=== PATIENT | female | born 1945 | race Caucasian/White ===

== ENCOUNTER 2023-11-14 07:28 | Inpatient (IN) ==
--- NOTE | 2023-11-09 11:48 | Anesthesiology Consultation ---
Date of Service November 09, 2023 Assessment & Plan (1) Encounter for pre-operative examination: Chart Review Chart Review: Acceptable Risk for Surgery and Patient NOT seen in Pre Admission Testing Consults Requested none History Surgery Operation Date: 11/14/23 12:15 Proposed Procedures p Right Sacroiliac Joint Fusion Revision - Audie Nathan DO Height/Weight Height: 5 ft Weight: 57.606 kg Allergies Allergy/AdvReac Type Severity Reaction Status Date / Time Sulfa (Sulfonamide Allergy Intermediate rash/itchy Verified 11/08/23 12:57 Antibiotics) meperidine [From Demerol] AdvReac Severe "I become Verified 11/08/23 12:57 a hostile, paranoid, vulgar talking women" Medications Home Medications Medication Instructions Recorded Confirmed Last Taken baclofen 10 mg tablet 10 mg PO BID 11/08/23 11/08/23 Unknown calcium carbonate 500 mg PO QAM 11/08/23 11/08/23 Unknown carvedilol 6.25 mg tablet 6.25 mg PO QPM 11/08/23 11/08/23 Unknown carvedilol 6.25 mg tablet 12.5 mg PO QAM 11/08/23 11/08/23 Unknown cetirizine 10 mg tablet (Zyrtec) 10 mg PO QAM PRN Allergy Symptoms 11/08/23 11/08/23 Unknown cholecalciferol (vitamin D3) 125 125 mcg PO QAM 11/08/23 11/08/23 Unknown mcg (5,000 unit) tablet (Vitamin D3) citalopram 40 mg tablet (Celexa) 40 mg PO QPM 11/08/23 11/08/23 Unknown conjugated estrogens 0.625 mg 0.625 mg PO Q OTHER DAY 11/08/23 11/08/23 Unknown tablet (Premarin) hydrocodone 10 mg-acetaminophen 1 tab PO Q8 11/08/23 11/08/23 Unknown 325 mg tablet magnesium oxide-magnesium amino 1 cap PO QAM 11/08/23 11/08/23 Unknown acid chelate 300 mg capsule (Magnesium (oxide/AA chelate)) multivitamin 1 tab PO QAM 11/08/23 11/08/23 Unknown potassium gluconate 550 mg (90 mg) 90 mg PO QAM 11/08/23 11/08/23 Unknown tablet vitamin E 400 unit tablet 400 unit PO QAM 11/08/23 11/08/23 Unknown Past Medical History Medical History History of postoperative nausea and vomiting "I normally wretch for 2 days"--for last surgery 10-26-23--had scopolamine patch placed and pt stated it helped tremendously Lumbar scoliosis Osteoarthritis Chronic back pain 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 Monroy ICD (implantable cardioverter-defibrillator) in place [employer] placed 03/2020--follows with Dr. Monroy PVC (premature ventricular contraction) History of COVID-19 x2--last 11/2022--mild symptoms, pt states since having covid has memory issues since having it Past Family History Family History Aunt Family history of reaction to anesthesia "all 5 maternal aunts have severe nausea" Sister Family history of reaction to anesthesia nausea/vomiting Mother Family history of reaction to anesthesia nausea/vomiting Brother Family history of reaction to anesthesia nausea/vomiting Past Surgical History Surgical History History of heart surgery 02/2020 @ [facility] "They punctured my right atrium when they were putting in my ICD, I coded and they brought me back and repaired it"--pt states 1 month later they brought her back to place ICD again (successful) History of endometrial ablation History of bilateral breast biopsy benign History of dilatation and curettage History of bilateral tubal ligation History of foot surgery left foot x2 right--hardware in place Status post trigger finger release bilateral trigger thumb History of elbow surgery right History of bilateral carpal tunnel release History of repair of left rotator cuff History of repair of right rotator cuff History of right knee surgery 1983 History of spinal surgery 2021--[facility] History of colonoscopy History of esophagogastroduodenoscopy (EGD) History of gynecologic surgery cyst removed History of total abdominal hysterectomy and bilateral salpingo-oophorectomy History of cholecystectomy History of appendectomy History of Mohs micrographic surgery for skin cancer x20---"I have had skin cancer since my 40s" History of surgical fusion joint right sacroiliac joint fusion @ 10-26-23 Dr. Nathan in [place] History of tooth extraction upper denture History of tonsillectomy and adenoidectomy History of sinus surgery History of cardiac cath x2--early 1999s and 2018 (@ [facility])--no stents placed History of implantable cardioverter-defibrillator (ICD) placement 03/2020 @ [facility]--[facility] Social History Smoking Status: Former smoker Do You Dip or Chew Tobacco: No Smoking End Date: 1979 Hx Alcohol Use: Yes Alcohol type: wine alcohol intake frequency: holidays/special occasions only Hx Substance Use: No substance use type: does not use Testing Electrocardiogram Date: 09/26/23 Findings: + NSR @ Echocardiogram Date: 06/15/23 EF: 40-45 RWMA: + hypokinetic (mild diffuse)
[~2023-11-14 07:28] MED LIST: ceFAZolin 2000MG 2,000 MG/15 ML SYR IV SCH
[2023-11-14] MEDS ORDERED: PROPOFOL IV EMULSION 10 MG/ML 20 ML VIAL IV ONE ×2 (08:28→10:14)
[2023-11-14] MEDS ORDERED: fentaNYL citrate PF 100 MCG/2 ML VIAL ONE (08:28)
[2023-11-14] MEDS ORDERED: DEXAMETHASONE SOD INJ 4 MG/ML VIAL ONE (08:28)
[2023-11-14] MEDS ORDERED: LIDOCAINE 2% 2 ML VIAL/AMP(20MG/ML) INFIL ONE (08:28)
[2023-11-14] MEDS ORDERED: ONDANSETRON INJ 2 MG/ML 2 ML VIAL ONE (08:28)
[2023-11-14] MEDS ORDERED: ROCURONIUM BROMIDE 10 MG/ML 5 ML VIAL IV ONE (08:29)
[2023-11-14] MEDS: VANCOMYCIN HCL 1,000 MG/270 ML BAG IV SCH (08:32)
[2023-11-14] MEDS: LR 15ML/HR IV SCH (08:32)
[2023-11-14] MEDS: ACETAMINOPHEN 500 MG TAB PO SCH (08:33)
[2023-11-14] MEDS: GABAPENTIN 300 MG CAP PO SCH (08:33)
[2023-11-14] MEDS: CeleBREX 200 MG CAP PO SCH (08:33)
--- NOTE | 2023-11-14 08:39 | History & Physical Bridge Note ---
Date of Service November 14, 2023 History & Physical Bridge Note I have examined the patient, reviewed the History & Physical and in the interval since the performance of the History & Physical I have noted the following changes of clinical significance: no changes noted
--- NOTE | 2023-11-14 08:40 | History & Physical Report ---
Date of Service November 14, 2023 Assessment & Plan (1) Sacroiliitis: Plan: Revision right sacroiliac joint fusion History of Present Illness Chief Complaint: Failed right SI joint fusion Primary Care Provider: Moraima Maharaj DO This is an 78-year-old female that presents with failure of her right SI joint fusion is here for revision. Allergies Allergy/AdvReac Type Severity Reaction Status Date / Time Sulfa (Sulfonamide Allergy Intermediate rash/itchy Verified 11/14/23 07:59 Antibiotics) meperidine [From Demerol] AdvReac Severe "I become Verified 11/14/23 07:59 a hostile, paranoid, vulgar talking women" Home Medications Medication Instructions Recorded Confirmed Type baclofen 10 mg tablet 10 mg PO BID 11/08/23 11/14/23 History calcium carbonate 500 mg PO QAM 11/08/23 11/14/23 History carvedilol 6.25 mg tablet 6.25 mg PO QPM 11/08/23 11/14/23 History carvedilol 6.25 mg tablet 12.5 mg PO QAM 11/08/23 11/14/23 History cetirizine 10 mg tablet (Zyrtec) 10 mg PO QAM PRN Allergy Symptoms 11/08/23 11/14/23 History cholecalciferol (vitamin D3) 125 125 mcg PO QAM 11/08/23 11/14/23 History mcg (5,000 unit) tablet (Vitamin D3) citalopram 40 mg tablet (Celexa) 40 mg PO QPM 11/08/23 11/14/23 History conjugated estrogens 0.625 mg 0.625 mg PO Q OTHER DAY 11/08/23 11/14/23 History tablet (Premarin) hydrocodone 10 mg-acetaminophen 1 tab PO Q8 11/08/23 11/14/23 History 325 mg tablet magnesium oxide-magnesium amino 1 cap PO QAM 11/08/23 11/14/23 History acid chelate 300 mg capsule (Magnesium (oxide/AA chelate)) multivitamin 1 tab PO QAM 11/08/23 11/14/23 History potassium gluconate 550 mg (90 mg) 90 mg PO QAM 11/08/23 11/14/23 History tablet vitamin E 400 unit tablet 400 unit PO QAM 11/08/23 11/14/23 History Past Med/Surg History Problem List (Updated 11/14/23 @ 08:40 by Audie Nathan DO) Sacroiliitis Encounter for pre-operative examination Medical History History of postoperative nausea and vomiting "I normally wretch for 2 days"--for last surgery 10-26-23--had scopolamine patch placed and pt stated it helped tremendously Lumbar scoliosis Osteoarthritis Chronic back pain 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 Monroy ICD (implantable cardioverter-defibrillator) in place [employer] placed 03/2020--follows with Dr. Monroy PVC (premature ventricular contraction) History of COVID-19 x2--last 11/2022--mild symptoms, pt states since having covid has memory i ssues since having it Surgical History History of heart surgery 02/2020 @ [facility] "They punctured my right atrium when they were putting in my ICD, I coded and they brought me back and repaired it"--pt states 1 month later they brought her back to place ICD again (successful) History of endometrial ablation History of bilateral breast biopsy benign History of dilatation and curettage History of bilateral tubal ligation History of foot surgery left foot x2 right--hardware in place Status post trigger finger release bilateral trigger thumb History of elbow surgery right History of bilateral carpal tunnel release History of repair of left rotator cuff History of repair of right rotator cuff History of right knee surgery 1983 History of spinal surgery 2021--[facility] History of colonoscopy History of esophagogastroduodenoscopy (EGD) History of gynecologic surgery cyst removed History of total abdominal hysterectomy and bilateral salpingo-oophorectomy History of cholecystectomy History of appendectomy History of Mohs micrographic surgery for skin cancer x20---"I have had skin cancer since my 40s" History of surgical fusion joint right sacroiliac joint fusion @ 10-26-23 Dr. Nathan in [place] History of tooth extraction upper denture History of tonsillectomy and adenoidectomy History of sinus surgery History of cardiac cath x2--early 1999s and 2018 (@ [facility] [place])--no stents placed History of implantable cardioverter-defibrillator (ICD) placement 03/2020 @ [facility] in [address]--[employer] Family History Aunt Family history of reaction to anesthesia "all 5 maternal aunts have severe nausea" Sister Family history of reaction to anesthesia nausea/vomiting Mother Family history of reaction to anesthesia nausea/vomiting Brother Family history of reaction to anesthesia nausea/vomiting Social History Smoking Status: Former smoker Tobacco Type: Cigarettes Smoking End Date: 1979; Second Hand Exposure: No; Do You Dip or Chew Tobacco: No; Tobacco Cessation Education Requested by Patient: No Hx Alcohol Use: Yes Alcohol type: wine Hx Substance Use: No Preferred Language: Palestinian Communication Ability: Effective Overnight Stocker Required: No Beliefs That Will Affect Care: None Current Living Situation: Spouse Other Information That Helps Us Care for You: No Feels Safe at Home: Yes Safety Concerns: Feels Safe At This Time Assistive Devices: Denture - Upper, Glasses and Walker Physical Exam Physical Exam: Patient is alert and oriented Heart regular in rhythm Lungs clear
[2023-11-14] MEDS ORDERED: ONDANSETRON INJ 2 MG/ML 2 ML VIAL IV PRN ×2 (08:41→12:04)
[2023-11-14] MEDS ORDERED: ATROPINE SULFATE 0.1 MG/ML 10ML SYR IV PRN (08:41)
[2023-11-14] MEDS ORDERED: HYDROmorphone INJ 2 MG/ML SYR/VIAL IV PRN (08:41)
[2023-11-14] MEDS ORDERED: PROMETHAZINE HCL 6.25 MG in SODIUM CHLORIDE 0.9% 50 ML IV PRN (08:41)
[2023-11-14] MEDS ORDERED: ePHEDrine sulfate 50 MG/ML AMP IV PRN (08:41)
[2023-11-14] MEDS: SCOPOLAMINE 1 MG/72 HR TDSY PATCH TD ONE ×2 (08:50→12:07)
[2023-11-14] MEDS ORDERED: DROPERIDOL 5 MG/2 ML VIAL ONE (09:05)
[2023-11-14] MEDS ORDERED: PHENYLEPHRINE HCL 10 MG/ML VIAL ONE (09:47)
[2023-11-14] MEDS ORDERED: ePHEDrine sulfate 50 MG/5 ML SYR ONE (09:47)
[2023-11-14] MEDS: BUPIVACAINE/EPINEPHRINE 0.25% 1:200,000 30 ML VIAL ONE (09:48)
[2023-11-14] MEDS: FLOSEAL HEMOSTATIC MATRIX 10ML TOP ONE (10:05)
[2023-11-14] MEDS: ceFAZolin 330 MG/ML 1 GM VIAL ONE (10:20)
[2023-11-14] MEDS ORDERED: SUGAMMADEX SODIUM 200 MG/2 ML VIAL IV ONE (10:20)
--- NOTE | 2023-11-14 10:29 | Operative Report ---
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 #2 removal of right-sided SI joint posterior Nevro 1 implant. #3 placement of Nevro 11 mm implant into the right SI joint filled with os design bone graft. #4 placement of 2 globus DWYER-coated screws across the right SI joint both filled with locally harvested morselized autograft and os design bone graft. Surgeon Audie Nathan, DO Material Reprocessing Associate Amanda Hicks Estimated Blood Loss 10 Findings Consistent with Post-Op Diagnosis Specimens None Indications This is a an 78-year-old female that status post right SI joint fusion unfortunately her implant migrated from the right SI joint causing significant pain and subsequently requiring revision procedure. Description of Procedure Patient was met with identified informed consent obtained. Patient was then taken to the operative suite underwent patient placed in a prone position on the Jose table with a chest padded bolsters. All bony promises well-padded eyes inspected to ensure no external precipice spine. This point the right upper buttock and lateral thigh was prepped and draped normal sterile fashion. Utilizing the previous incision site over the posterior right SI joint. I opened the incision down to and exposing the posterior entrance to the right SI joint. Is able to palpate the Nevro implant noting it to be loose. I was then able to grasp the implant and remove it from the right SI joint. I then placed a larger 11 mm Nevro implant into the right SI joint filled with os design bone graft. Once in appropriate position the apparatus was deployed fixating the ileum to the sacrum. I then placed a incision along the right upper buttock in line with the posterior slope of the SI joint approximate 3 mm in length. A K wire was then inserted and verifying views in inlet outlet and lateral views placed the K wire across the proximal right SI joint just anterior to the posterior implants. Then using dilators over the K wire I drilled across the joint and placed a 50 mm DWYER-coated slotted screw filled with os design and locally harvested morselized autograft across the right SI joint. It demonstrated excellent purchase and placement. Using an outrigger guide a second K wire was placed in similar fashion. A second 40 mm DWYER-coated screw filled with locally harvested morselized autograft out of os design bone graft was then inserted across the right SI joint. Again demonstrated excellent placement and purchase. The incisions were then copiously irrigated and closed with subcutaneous Vicryl and 4 Monocryl for final closure. Steri-Strips sterile dressings placed. Patient waken taken to PACU stable condition. Please note Amanda Hicks was present throughout the entire procedure and all the patient positioning complex portion of the surgery and final skin closure. I attest to the content of the Intraoperative Record and any orders documented therein. Any exceptions are noted below.
[2023-11-14] MEDS: fentaNYL citrate PF 100 MCG/2 ML VIAL IV PRN (10:55)
--- NOTE | 2023-11-14 11:48 | Fluoroscopy Report ---
INTRAOPERATIVE RADIOGRAPHS CLINICAL HISTORY: Right sacroiliac joint fusion. Fluoro time: 139 seconds Ka,r: 86.32 mGy FINDINGS: 2 spot fluoroscopic views of the right sacroiliac joint are presented. 2 cortical lag screw s have been placed transfixing the right sacroiliac joint. The orthopedic hardware appears intact. Ad ditional radiodense foreign bodies project over the sacrum and lower lumbar spine on both images. IMPRESSION: Intraoperative images from right sacroiliac joint fusion as above. Electronically signed by: Reggie Lepe M.D. 11/14/2023 11:47 AM
[2023-11-14] MEDS ORDERED: HYDROmorphone INJ 0.5 MG/0.5 ML SYR IV PRN (12:04)
[2023-11-14] MEDS ORDERED: CETIRIZINE HCL 10 MG TABLET PO PRN (12:04)
[2023-11-14] MEDS ORDERED: NALOXONE HCL 0.4 MG/1 ML VIAL/CARP IV PRN (12:04)
[2023-11-14] MEDS ORDERED: ONDANSETRON 4 MG OD TAB PO PRN (12:04)
[2023-11-14] MEDS ORDERED: METOCLOPRAMIDE HCL INJ 5 MG/ML 2 ML VIAL IV PRN (12:04)
[2023-11-14] MEDS ORDERED: PROMETHAZINE HCL 12.5 MG in SODIUM CHLORIDE 0.9% 50 ML IV PRN (12:04)
[2023-11-14] MEDS: LR 60ML/HR IV SCH (12:07)
[2023-11-14] MEDS: LACTATED RINGER'S 1,000 ML IV SCH (12:07)
--- NOTE | 2023-11-14 12:12 | Anesthesiology Progress Note ---
Date of Service November 14, 2023 Anesthesia Post Procedure Vital Signs Vital Signs: Temp Pulse Resp BP Pulse Ox O2 Del Method O2 Flow Rate 11/14/23 11:40 59 L 13 130/60 97 Nasal Cannula 2 11/14/23 11:25 62 14 142/66 H 96 Nasal Cannula 2 11/14/23 11:15 36.4 C L 61 13 141/68 H 91 Room Air 11/14/23 11:10 63 14 140/80 97 Oxymask 8 11/14/23 11:00 58 L 13 155/77 H 100 Oxymask 8 11/14/23 10:50 61 10 L 158/77 H 97 Oxymask 8 11/14/23 10:40 36.0 C L 65 12 165/78 H 92 Oxymask 8 11/14/23 07:43 36.7 C 20 167/94 H 96 Room Air Pain Intensity Right Hip: Pain Intensity: 3 Transfer of Care Handoff Completed per policy Notes Mental Status: alert / awake / arousable and participated in evaluation Patient Amnestic to Procedure: Yes Nausea / Vomiting: adequately controlled Pain: adequately controlled Airway Patency, RR, SpO2: stable & adequate BP & HR: stable & adequate Hydration State: stable & adequate Anesthetic Complications: no major complications apparent
[2023-11-14] MEDS: HYDROmorphone INJ 1 MG/ML SYRINGE IV PRN (12:35)
--- NOTE | 2023-11-14 15:31 | Hospitalist Consultation ---
Date of Consultation November 14, 2023 Assessment & Plan (1) Sacroiliac joint dysfunction: (2) S/P fusion of sacroiliac joint: Nini Talbot is an 78y/o F with PMHx of osteoarthritis, lumbar scoliosis, chronic back pain, history of anemia, major depressive disorder, cardiomyopathy s/p ICD placement, pulmonary hypertension, history of sacroiliac joint dysfunction s/p right SI joint fusion, history of basal cell carcinoma, CAD, HTN, hyperlipidemia and other problems listed below who was referred to our [facility] for post-operative medical management after undergoing revision of her right sacroiliac joint fusion with Dr. Nathan. Patient's implant migrated from the right SI joint causing significant pain and subsequently she required a revision procedure. POD#0 s/p revision of R sacroiliac joint fusion with Dr. Nathan; EBL: 10mL -Per ortho for pain control, wound care, anticoagulation and activities. -Monitor H&H for acute blood loss anemia and transfuse blood products PRN. -Continue incentive spirometry, PT when appropriate as per ortho's recommendation. (3) HTN (hypertension): Can continue [employer] carvedilol regimen. (4) Seasonal allergies: Can continue [employer] cetirizine. (5) MDD (major depressive disorder): Can continue [employer] citalopram. DVT Prophylaxis: SCDs/TEDs - As per ortho team Code Status: FULL CODE PCP: Moraima Maharaj DO Disposition: Patient currently admitted in Med/Surg, Room E309-1; discharge recommendations per Dr. Nathan. Thank you for this consultation. We will follow the patient with you during their hospital stay. You can reach a member of the [facility] Hospitalist Team 29/11 via [employer]. Patient seen in collaboration with Dr. Santizo. Please see addendum. I spent a total of 40 minutes coordinating, documenting, and providing care for this patient excluding time spent in the performance of separately billed services. This included personally reviewing all current laboratories and imaging studies, medical reconciliation, outpatient chart review and discussion with specialists. This chart was completed in part utilizing Speech Voice Recognition Software. Grammatical errors, random word insertions, pronoun errors, and incomplete sentences are an occasional consequence of this system due to software limitations, ambient noise, and hardware issues. Any formal questions or concerns about the content, text, or information contained within the body of this dictation should be directly addressed to the provider for clarification. Supervising Physician Co-Signing Physician Notes Attending addendum: The patient was seen and examined in medical floor She is a status post right sacroiliac joint fusion revision Has been complaining of pain but does not have any other significant symptoms On examination Lying in bed without any apparent distress except some pain in the right sacroiliac joint No numbness and or tingling in the extremities Remains hemodynamically stable Chest-clear to auscultate bilaterally Heart-S1-S2 regular no murmur Abdomen-benign Extremities-negative for any edema Her labs and medications reviewed Status post right sacroiliac joint fusion revision Remains medically stable with her other medical conditions as mentioned in assessment plan Agree with and take full responsibility of the assessment plan as outlined above by ADRIAN Quinones Dr History of Present Illness Reason for Consultation: Post-Operative Medical Management Requesting Physician: Audie Nathan DO Attending Physician: Audie Nathan DO History of Present Illness Nini Talbot is an 78y/o F with PMHx of osteoarthritis, lumbar scoliosis, chronic back pain, history of anemia, major depressive disorder, cardiomyopathy s/p ICD placement, pulmonary hypertension, history of sacroiliac joint dysfunction s/p right SI joint fusion, history of basal cell carcinoma, CAD, HTN, hyperlipidemia and other problems listed below who was referred to our [facility] Hospitalist Team for post-operative medical management after undergoing revision of her right sacroiliac joint fusion with Dr. Nathan. History obtained from patient and associated chart review. Patient seen and examined at bedside. Patient currently reporting 8/10 pain. She was given IV Dilaudid 1mg while I was in the room. Reports improvement in her pain with the Dilaudid. She has been up and moving around since being out of surgery. Reports no issues with urinating and she has been drinking some water without any issue. Has not yet eaten anything, but is going to try. She reports not having much of an appetite yet. However, she denies any nausea or vomiting. Allergies Allergy/AdvReac Type Severity Reaction Status Date / Time Sulfa (Sulfonamide Allergy Intermediate rash/itchy Verified 11/14/23 07:59 Antibiotics) meperidine [From Demerol] AdvReac Severe "I become Verified 11/14/23 07:59 a hostile, paranoid, vulgar talking women" Home Medications Medication Instructions Recorded Confirmed Type baclofen 10 mg tablet 10 mg PO BID 11/08/23 11/14/23 History calcium carbonate 500 mg PO QAM 11/08/23 11/14/23 History carvedilol 6.25 mg tablet 6.25 mg PO QPM 11/08/23 11/14/23 History carvedilol 6.25 mg tablet 12.5 mg PO QAM 11/08/23 11/14/23 History cetirizine 10 mg tablet (Zyrtec) 10 mg PO QAM PRN Allergy Symptoms 11/08/23 0 11/14/23 History cholecalciferol (vitamin D3) 125 125 mcg PO QAM 11/08/23 11/14/23 History mcg (5,000 unit) tablet (Vitamin D3) citalopram 40 mg tablet (Celexa) 40 mg PO QPM 11/08/23 11/14/23 History conjugated estrogens 0.625 mg 0.625 mg PO Q OTHER DAY 11/08/23 11/14/23 History tablet (Premarin) hydrocodone 10 mg-acetaminophen 1 tab PO Q8 11/08/23 11/14/23 History 325 mg tablet magnesium oxide-magnesium amino 1 cap PO QAM 11/08/23 11/14/23 History acid chelate 300 mg capsule (Magnesium (oxide/AA chelate)) multivitamin 1 tab PO QAM 11/08/23 11/14/23 History potassium gluconate 550 mg (90 mg) 90 mg PO QAM 11/08/23 11/14/23 History tablet vitamin E 400 unit tablet 400 unit PO QAM 11/08/23 11/14/23 History Patient History Medical History History of postoperative nausea and vomiting "I normally wretch for 2 days"--for last surgery 10-26-23--had scopolamine patch placed and pt stated it helped tremendously Lumbar scoliosis Osteoarthritis Chronic back pain Basal cell carcinoma of scalp Basal cell carcinoma of face History of anemia recently diagnosed 06/2023--was on oral iron but taken off History of sacroiliac joint dysfunction Pulmonary hypertension Cardiomyopathy left ventricular--per pt reason for ICD placement/on carvedilol--follows with Dr. Monroy ICD (implantable cardioverter-defibrillator) in place [employer] placed 03/2020--follows with Dr. Monroy PVC (premature ventricular contraction) History of COVID-19 x2--last 11/2022--mild symptoms, pt states since having covid has memory issues since having it Surgical History History of heart surgery 02/2020 @ [facility] "They punctured my right atrium when they were putting in my ICD, I coded and they brought me back and repaired it"--pt states 1 month later they brought her back to place ICD again (successful) History of endometrial ablation History of bilateral breast biopsy benign History of dilatation and curettage History of bilateral tubal ligation History of foot surgery left foot x2 right--hardware in place Status post trigger finger release bilateral trigger thumb History of elbow surgery right History of bilateral carpal tunnel release History of repair of left rotator cuff History of repair of right rotator cuff History of right knee surgery 1983 History of spinal surgery 2021--[facility] History of colonoscopy History of esophagogastroduodenoscopy (EGD) History of gynecologic surgery cyst removed History of total abdominal hysterectomy and bilateral salpingo-oophorectomy History of cholecystectomy History of appendectomy History of Mohs micrographic surgery for skin cancer x20---"I have had skin cancer since my 40s" History of surgical fusion joint right sacroiliac joint fusion @ 10-26-23 Dr. Nathan in [place] History of tooth extraction upper denture History of tonsillectomy and adenoidectomy History of sinus surgery History of cardiac cath x2--early 1999s and 2018 (@ [facility])--no stents placed History of implantable cardioverter-defibrillator (ICD) placement 03/2020 @ [facility] in [place]--[employer] Family History Aunt Family history of reaction to anesthesia "all 5 maternal aunts have severe nausea" Sister Family history of reaction to anesthesia nausea/vomiting Mother Family history of reaction to anesthesia nausea/vomiting Brother Family history of reaction to anesthesia nausea/vomiting Social History Smoking Status: Former smoker Tobacco Type: Cigarettes Smoking End Date: 1979; Second Hand Exposure: No; Do You Dip or Chew Tobacco: No; Tobacco Cessation Education Requested by Patient: No Hx Alcohol Use: Yes Alcohol type: wine Hx Substance Use: No Preferred Language: [place] Communication Ability: Effective Professor 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 Physical Exam Physical Exam: General: Sitting up in bed, very pleasant, conversing appropriately, NAD. A+Ox3, euthymic affect. HEENT: Normocephalic, atraumatic. Conjunctivae normal, anicteric sclerae. External ear and nose normal, oropharynx normal. Respiratory: Normal respiratory effort, lungs clear to auscultation, no wheeze, rales, rhonchi. No accessory muscle use. Cardiovascular: Regular rate, rhythm, no murmur, normal peripheral pulses, no BLE edema. Vessels: No JVD. Abdomen/GI: Normal bowel sounds, soft, nontender, no hepatosplenomegaly. Extremities/Musculoskeletal: No cyanosis or clubbing, limited mobility of RLE secondary to pain. Neurologic: PERRL, EOMI, accommodation nl, no face palsy, no dysarthria. Skin: No rashes, normal color, warm/dry. Bandaging intact on lower back region, no seeping or drainage. Results & Data Results & Data Vital Signs (Past 12 Hours) Vital Signs Temp Pulse Pulse Resp BP Pulse Ox O2 Del Method 11/14/23 15:00 36.3 C L 59 L 16 121/74 97 Nasal Cannula 11/14/23 14:00 36.6 C 62 16 124/68 96 Nasal Cannula 11/14/23 13:00 36.3 C L 61 16 117/70 97 Nasal Cannula 11/14/23 12:34 97 Nasal Cannula 11/14/23 12:34 36.4 C L 64 18 119/70 90 Room Air 11/14/23 12:00 36.4 C L 63 18 150/74 H 94 Room Air 11/14/23 11:40 59 L 13 130/60 97 Nasal Cannula 11/14/23 11:25 62 14 142/66 H 96 Nasal Cannula 11/14/23 11:15 36.4 C L 61 13 141/68 H 91 Room Air 11/14/23 11:10 63 14 140/80 97 Oxymask 11/14/23 11:00 58 L 13 155/77 H 100 Oxymask 11/14/23 10:50 61 10 L 158/77 H 97 Oxymask 11/14/23 10:40 36.0 C L 65 12 165/78 H 92 Oxymask 11/14/23 07:43 36.7 C 20 167/94 H 96 Room Air O2 Flow Rate 11/14/23 15:00 1 11/14/23 14:00 1 11/14/23 13:00 2 11/14/23 12:34 2 11/14/23 12:34 11/14/23 12:00 11/14/23 11:40 2 11/14/23 11:25 2 11/14/23 11:15 11/14/23 11:10 8 11/14/23 11:00 8 11/14/23 10:50 8 11/14/23 10:40 8 11/14/23 07:43 Diagnostic Findings Fluoroscopy 11/14/23 09:05 INTRAOPERATIVE RADIOGRAPHS CLINICAL HISTORY: Right sacroiliac joint fusion. Fluoro time: 139 seconds Ka,r: 86.32 mGy FINDINGS: 2 spot fluoroscopic views of the right sacroiliac joint are presented. 2 cortical lag screws have been placed transfixing the right sacroiliac joint. The orthopedic hardware appears intact. Additional radiodense foreign bodies project over the sacrum and lower lumbar spine on both images. IMPRESSION: Intraoperative images from right sacroiliac joint fusion as above. Electronically signed by: Reggie Lepe M.D. 11/14/2023 11:47 AM Medications Administered Acetaminophen (Acetaminophen 500 Mg Tab) 1,000 mg PO PREOP PABLO Stop: 11/14/23 18:00 Last Admin: 11/14/23 08:33 Dose: 1,000 mg Documented By: OCHOA Celecoxib (Celebrex 200 Mg Cap) 200 mg PO PREOP PABLO Stop: 11/14/23 18:00 Last Admin: 11/14/23 08:33 Dose: 200 mg Documented By: OCHOA Fentanyl Citrate (Fentanyl Citrate Pf 100 Mcg/2 Ml Vial) 50 mcg IV Q5M PRN PRN Reason: PACU Use Only-Pain Stop: 11/14/23 16:41 Last Admin: 11/14/23 10:55 Dose: 50 mcg Documented By: EMMETT Gabapentin (Gabapentin 300 Mg Cap) 300 mg PO PREOP PABLO Stop: 11/14/23 18:00 Last Admin: 11/14/23 08:33 Dose: 300 mg Documented By: OCHOA Hydromorphone HCl (Hydromorphone Inj 1 Mg/Ml Syringe) 1 mg IV Q3H PRN PRN Reason: severe pain (scale 7-10) Stop: 11/28/23 12:03 Last Admin: 11/14/23 12:35 Dose: 1 mg Documented By: BORA Lactated Ringer's (Lr) 1,000 mls @ 60 mls/hr IV .[id number] [facility] Stop: 11/14/23 22:39 Last Admin: 11/14/23 12:07 Dose: Not Given Documented By: BORA Vancomycin HCl (Vancomycin Hcl) 1,000 mg in 270 mls @ 242 mls/hr IV PREOP PABLO Stop: 11/14/23 18:00 Last Infusion: 11/14/23 12:08 Dose: Infused Documented By: Admin: 11/14/23 08:32 Dose: 242 mls/hr Documented By: OCHOA Lactated Ringer's (Lr) 1,000 mls @ 15 mls/hr IV .Q24H PABLO Stop: 11/15/23 05:59 Last Infusion: 11/14/23 09:11 Dose: Infused Documented By: Admin: 11/14/23 08:32 Dose: 15 mls/hr Documented By: OCHOA Lactated Ringer's (Lr) 1,000 mls @ 75 mls/hr IV .[id number] [facility] Stop: 12/14/23 12:03 Last Admin: 11/14/23 12:07 Dose: 75 mls/hr Documented By: BORA Discontinued Medications Bupivacaine HCl/Epinephrine Bitart (Bupivacaine/Epinephrine 0.25% 1:200,000 30 Ml Vial) Confirm Administered Dose 30 ml .ROUTE .[facility]-MED ONE Stop: 11/14/23 09:06 Last Admin: 11/14/23 09:48 Dose: 25 ml Documented By: GMB Cefazolin Sodium (Cefazolin 330 Mg/Ml 1 Gm Vial) Confirm Administered Dose 990 mg .ROUTE .[facility]-MED ONE Stop: 11/14/23 09:06 Last Admin: 11/14/23 10:20 Dose: 990 mg Documented By: GMB Miscellaneous ( Floseal Hemostatic Matrix 10ml) 20 ml TOP ONCE ONE Stop: 11/14/23 10:18 Last Admin: 11/14/23 10:05 Dose: 20 ml Documented By: GMB Scopolamine (Scopolamine 1 Mg/72 Hr Tdsy Patch) Confirm Administered Dose 1 patch TD .STK-MED ONE Stop: 11/14/23 08:49 Last Admin: 11/14/23 08:50 Dose: 1 patch Documented By: [facility] Scopolamine (Scopolamine 1 Mg/72 Hr Tdsy Patch) 1 patch TD ONE ONE Stop: 11/14/23 08:48 Last Admin: 11/14/23 12:07 Dose: Not Given Documented By: BORA (3) HTN (hypertension) Hypertension type: unspecified Qualified Code(s): I10 - Essential (primary) hypertension (5) MDD (major depressive disorder) Active/Remission status: remission status unspecified Major depression recurrence: unspecified whether recurrent Qualified Code(s): F32.9 - Major depressive disorder, single episode, unspecified
[2023-11-14] MEDS: ESTROGENS, CONJUGATED 0.625 MG TAB PO SCH (15:33)
[2023-11-14] MEDS: carvediloL 6.25 MG TAB PO SCH (15:34)
[2023-11-14] MEDS: CHECK SCOPOLAMINE PATCH PLACEMENT SCH (15:34)
[2023-11-14] MEDS: BACLOFEN 10 MG TAB PO SCH (20:57)
[2023-11-14] MEDS: CITALOPRAM 40 MG TAB PO SCH (20:58)
[2023-11-14] MEDS: ACETAMINOPHEN 1,000 MG/100 ML VIAL IV PRN (21:02)
[2023-11-15] MEDS: TOCOPHERYL, DL-ALPHA 400 UNITS 180 MG CAP PO SCH (07:18)
[2023-11-15] MEDS: oxyCODONE HCL IR 5 MG TAB (IMMEDIATE RELEASE) PO PRN (07:18)
[2023-11-15] MEDS: MAGNESIUM OXIDE 400 MG TAB PO SCH (07:18)
[2023-11-15] MEDS: CALCIUM CARBONATE 1250MG TAB PO SCH (07:19)
[2023-11-15] MEDS: CHOLECALCIFEROL 125 MCG (5,000 UNITS) TAB PO SCH (07:19)
[2023-11-15] MEDS: carvediloL 12.5 MG TAB PO SCH (07:19)
[2023-11-15] MEDS: MULTIVITAMIN TAB PO SCH (07:19)
--- NOTE | 2023-11-15 08:25 | Orthopedic Progress Note ---
Date of Service November 15, 2023 Assessment & Plan (1) S/P fusion of sacroiliac joint: Plan: At this point we will initiate physical therapy continue pain management. Will assess her function over next few days and hopefully discharge home. Admission and Anticipated Discharge Date Admission Date: November 14, 2023 Subjective Patient complaining of some hip pain in the perioperative area. There is no back pain no radiculopathy. She was ambulating yesterday. Physical Exam Physical Exam: On exam this morning she is very uncomfortable. She is just taken some pain medication. She is neurologically intact. Results & Data Vital Signs (Past 12 Hours) Vital Signs Temp Pulse Resp BP Pulse Ox O2 Del Method 11/15/23 07:33 36.7 C 66 18 165/70 H 97 Room Air 11/15/23 04:00 36.4 C L 73 16 150/70 H 95 Room Air 11/14/23 22:54 36.4 C L 72 16 134/66 97 Room Air
[2023-11-15] MEDS ORDERED: NON-FORMULARY MEDICATION (Potassium Gluconate 550 mg (90 mg) Tablet) PO SCH (09:00)
[2023-11-15 10:16] LABS: Hematocrit (blood only) 29.9 % (37.0-47.0); Mean Corpuscular Hemoglobin 31.7 pg (25.0-34.0); Mean Corpuscular Hgb Conc 33.4 g/dL (32.0-36.0); Mean Corpuscular Volume 94.9 fL (80.0-100.0); Mean Platelet Volume 9.9 fL (9.4-12.4); Platelet Count 163 K/uL (130-400); RDW Coefficient of Variation 13.3 % (11.5-14.5); RDW Standard Deviation 45.7 fL (36.4-46.3); Red Blood Count 3.15 M/uL (4.20-5.40); White Blood Count 7.78 K/ul (4.8-10.8)
--- NOTE | 2023-11-15 10:29 | Hospitalist Progress Note ---
Date of Service November 15, 2023 Assessment & Plan (1) Sacroiliac joint dysfunction: (2) S/P fusion of sacroiliac joint: Plan: Nini Talbot is an 78y/o F with PMHx of osteoarthritis, lumbar scoliosis, chronic back pain, history of anemia, major depressive disorder, cardiomyopathy s/p ICD placement, pulmonary hypertension, history of sacroiliac joint dysfunction s/p right SI joint fusion, history of basal cell carcinoma, CAD, HTN, hyperlipidemia and other problems listed below [facility] after undergoing revision of her right sacroiliac joint fusion with Dr. Nathan. Patient's implant migrated from the right SI joint causing significant pain and subsequently she required a revision procedure. POD#1 s/p revision of R sacroiliac joint fusion with Dr. Nathan; EBL: 10mL -Per ortho for pain control, wound care, anticoagulation and activities. -Monitor H&H for acute blood loss anemia and transfuse blood products PRN. -Continue incentive spirometry, PT when appropriate as per ortho's recommendation. -Pt was reporting significant pain this AM (11/14); notes improvement in pain s/p administration of po oxycodone + IV Tylenol. (3) HTN (hypertension): Plan: BP slightly elevated at 165/70 this AM (11/14) --> Most likely 2/2 pain. Can continue [employer] carvedilol regimen. Routine BP checks, monitor. (4) Seasonal allergies: Plan: Can continue [employer] cetirizine. (5) MDD (major depressive disorder): Plan: Can continue [employer] citalopram. DVT Prophylaxis: SCDs/TEDs - As per ortho team Code Status: FULL CODE PCP: Moraima Maharaj DO Disposition: Patient currently admitted in Med/Surg, Room E309-1; discharge recommendations per Dr. Nathan. Patient seen in collaboration with Dr. Carvajal. Please see addendum. I spent a total of 35 minutes coordinating, documenting, and providing care for this patient excluding time spent in the performance of separately billed services. This included personally reviewing all current laboratories and imaging studies, medical reconciliation, outpatient chart review and discussion with specialists. This chart was completed in part utilizing Speech Voice Recognition Software. Grammatical errors, random word insertions, pronoun errors, and incomplete sentences are an occasional consequence of this system due to software limitations, ambient noise, and hardware issues. Any formal questions or concerns about the content, text, or information contained within the body of this dictation should be directly addressed to the provider for clarification. Admission and Anticipated Discharge Date Admission Date: November 14, 2023 Supervising Physician Co-Signing Physician Notes Patient seen and examined Reports surgical site pain is controlled Hb is 10 today. Monitor Tolerating diet. Stop IVF PT/OT Agree with findings and plans as detailed by Advanced Provider and take full responsibility Subjective Patient seen and examined in room E309-1. She is reporting significant pain in her right hip this morning. Patient received 10mg of oxycodone prior to my arrival in her room. Reports this medication seemed to be "kicking in" throughout our discussion. Patient was also receiving IV Tylenol while I was in the room. She mentioned this seems to be helping as well to alleviate the pain. Patient states she slept very well last night. However, the pain became rather severe when she got up this morning to use the restroom. Toward the end of our conversation, she mentioned the pain significantly improved. States it went from 10/10 pain to 4-5/10 pain with the Tylenol and oxycodone. Made patient aware of the pain medication regimen in place. Told her to contact our team if her pain would get worse or not continue to improve. Review of Systems Review of Systems: At least ten systems reviewed and negative, except as noted in the HPI. Physical Exam Physical Exam: General: Laying down in bed, conversing appropriately, still very pleasant, NAD, A+Ox3. HEENT: Normocephalic, atraumatic. Conjunctivae normal, anicteric sclerae. External ear and nose normal, oropharynx normal. Respiratory: Normal respiratory effort, lungs clear to auscultation, no wheeze, rales, rhonchi. No accessory muscle use. Cardiovascular: Regular rate, rhythm, no murmur, normal peripheral pulses, no BLE edema. Vessels: No JVD. Abdomen/GI: Normal bowel sounds, soft, nontender, no hepatosplenomegaly. Extremities/Musculoskeletal: No cyanosis or clubbing, significant pain in R hip with ambulation. Neurologic: PERRL, EOMI, accommodation nl, no face palsy, no dysarthria. Skin: Normal color, warm/dry. Did not directly visualize the bandaging covering her surgical site 2/2 pain with movement. Results & Data Results & Data Vital Signs (Past 12 Hours) Vital Signs Temp Pulse Resp BP Pulse Ox O2 Del Method 11/15/23 07:33 36.7 C 66 18 165/70 H 97 Room Air 11/15/23 04:00 36.4 C L 73 16 150/70 H 95 Room Air 11/14/23 22:54 36.4 C L 72 16 134/66 97 Room Air Laboratory Results Short CBC 11/15/23 Range/Units 09:52 WBC 7.78 (4.8-10.8) K/ul Hgb 10.0 L (12.0-16.0) g/dl Hct 29.9 L (37.0-47.0) % Plt Count 163 (130-400) K/uL BMP 11/15/23 09:52 Sodium 133 L Potassium 4.1 Chloride 101 Carbon Dioxide 28 BUN 11 Creatinine 0.63 Glucose 89 Calcium 9.2 Diagnostic Findings Fluoroscopy 11/14/23 09:05 INTRAOPERATIVE RADIOGRAPHS CLINICAL HISTORY: Right sacroiliac joint fusion. Fluoro time: 139 seconds Ka,r: 86.32 mGy FINDINGS: 2 spot fluoroscopic views of the right sacroiliac joint are presented. 2 cortical lag screws have been placed transfixing the right sacroiliac joint. The orthopedic hardware appears intact. Additional radiodense foreign bodies project over the sacrum and lower lumbar spine on both images. IMPRESSION: Intraoperative images from right sacroiliac joint fusion as above. Electronically signed by: Reggie Lepe M.D. 11/14/2023 11:47 AM Medications Administered Baclofen (Baclofen 10 Mg Tab) 10 mg PO BID [facility] Stop: 12/14/23 20:59 Last Admin: 11/15/23 07:18 Dose: 10 mg Documented By: Admin: 11/14/23 20:57 Dose: 10 mg Documented By: EMMY Calcium Carbonate (Calcium Carbonate 1250mg Tab) 1 tab PO QAM [facility] Stop: 12/15/23 08:59 Last Admin: 11/15/23 07:19 Dose: 1 tab Documented By: BORA Carvedilol (Carvedilol 6.25 Mg Tab) 6.25 mg PO QDD [facility] Stop: 12/14/23 16:29 Last Admin: 11/14/23 15:34 Dose: 6.25 mg Documented By: BORA Carvedilol (Carvedilol 12.5 Mg Tab) 12.5 mg PO QDB [facility] Stop: 12/15/23 07:29 Last Admin: 11/15/23 07:19 Dose: 12.5 mg Documented By: BORA Citalopram Hydrobromide (Citalopram 40 Mg Tab) 40 mg PO QPM [facility] Stop: 12/14/23 20:59 Last Admin: 11/14/23 20:58 Dose: 40 mg Documented By: EMMY Estrogens Conjugated (Estrogens, Conjugated 0.625 Mg Tab) 0.625 mg PO Q2D@0900 [facility] Stop: 12/14/23 12:29 Last Admin: 11/14/23 15:33 Dose: 0.625 mg Documented By: BORA Hydromorphone HCl (Hydromorphone Inj 1 Mg/Ml Syringe) 1 mg IV Q3H PRN PRN Reason: severe pain (scale 7-10) Stop: 11/28/23 12:03 Last Admin: 11/14/23 16:01 Dose: 1 mg Documented By: Admin: 11/14/23 12:35 Dose: 1 mg Documented By: BORA Lactated Ringer's (Lr) 1,000 mls @ 75 mls/hr IV .[id number] [facility] Stop: 12/14/23 12:03 Last Admin: 11/15/23 00:25 Dose: 75 mls/hr Documented By: Infusion: 11/15/23 00:25 Dose: Infused Documented By: Leda Admin: 11/14/23 12:07 Dose: 75 mls/hr Documented By: BORA Acetaminophen (Ofirmev) 1,000 mg in 100 mls @ 400 mls/hr IV Q8H PRN PRN Reason: Pain Rating 1-3 & Pre PT Stop: 11/15/23 12:05 Last Infusion: 11/15/23 08:26 Dose: Infused Documented By: Admin: 11/15/23 08:01 Dose: 400 mls/hr Documented By: Infusion: 11/14/23 21:20 Dose: Infused Documented By: Admin: 11/14/23 21:02 Dose: 400 mls/hr Documented By: EMMY Magnesium Oxide (Magnesium Oxide 400 Mg Tab) 1 mg PO [facility] Stop: 12/15/23 08:59 Last Admin: 11/15/23 07:18 Dose: 1 mg Documented By: BORA Miscellaneous (Check Scopolamine Patch Placement) 1 each N/A QS [facility] Stop: 11/17/23 05:59 Last Admin: 11/15/23 08:27 Dose: 1 each Documented By: Admin: 11/15/23 00:30 Dose: 1 each Documented By: Admin: 11/14/23 15:34 Dose: 1 each Documented By: BORA Multivitamins (Multivitamin Tab) 1 tab PO [facility] Stop: 12/15/23 08:59 Last Admin: 11/15/23 07:19 Dose: 1 tab Documented By: BORA Oxycodone HCl (Oxycodone Hcl Ir 5 Mg Tab (Immediate Release)) 5 - 10 mg PO Q4H PRN PRN Reason: mod to severe pain Stop: 11/28/23 12:03 Last Admin: 11/15/23 07:18 Dose: 10 mg Documented By: BORA Vitamin D (Cholecalciferol 125 Mcg (5,000 Units) Tab) 125 mcg PO [facility] Stop: 12/15/23 08:59 Last Admin: 11/15/23 07:19 Dose: 125 mcg Documented By: BORA Vitamin E (Tocopheryl, Dl-Alpha 400 Units 180 Mg Cap) 400 units PO [facility] Stop: 12/15/23 08:59 Last Admin: 11/15/23 07:18 Dose: 400 units Documented By: BORA Discontinued Medications Acetaminophen (Acetaminophen 500 Mg Tab) 1,000 mg PO PREOP [facility] Stop: 11/14/23 18:00 Last Admin: 11/14/23 08:33 Dose: 1,000 mg Documented By: OCHOA Bupivacaine HCl/Epinephrine Bitart (Bupivacaine/Epinephrine 0.25% 1:200,000 30 Ml Vial) Confirm Administered Dose 30 ml .ROUTE .STK-MED ONE Stop: 11/14/23 09:06 Last Admin: 11/14/23 09:48 Dose: 25 ml Documented By: ALAINA Cefazolin Sodium (Cefazolin 330 Mg/Ml 1 Gm Vial) Confirm Administered Dose 990 mg .ROUTE .STK-MED ONE Stop: 11/14/23 09:06 Last Admin: 11/14/23 10:20 Dose: 990 mg Documented By: ALAINA Celecoxib (Celebrex 200 Mg Cap) 200 mg PO PREOP [facility] Stop: 11/14/23 18:00 Last Admin: 11/14/23 08:33 Dose: 200 mg Documented By: OCHOA Fentanyl Citrate (Fentanyl Citrate Pf 100 Mcg/2 Ml Vial) 50 mcg IV Q5M PRN PRN Reason: PACU Use Only-Pain Stop: 11/14/23 16:41 Last Admin: 11/14/23 10:55 Dose: 50 mcg Documented By: EMMETT Gabapentin (Gabapentin 300 Mg Cap) 300 mg PO PREOP [facility] Stop: 11/14/23 18:00 Last Admin: 11/14/23 08:33 Dose: 300 mg Documented By: OCHOA Lactated Ringer's (Lr) 1,000 mls @ 60 mls/hr IV .[id number] [facility] Stop: 11/14/23 22:39 Last Admin: 11/14/23 12:07 Dose: Not Given Documented By: BORA Vancomycin HCl (Vancomycin Hcl) 1,000 mg in 270 mls @ 242 mls/hr IV PREOP [facility] Stop: 11/14/23 18:00 Last Infusion: 11/14/23 12:08 Dose: Infused Documented By: Admin: 11/14/23 08:32 Dose: 242 mls/hr Documented By: OCHOA Lactated Ringer's (Lr) 1,000 mls @ 15 mls/hr IV .Q24H [facility] Stop: 11/15/23 05:59 Last Infusion: 11/14/23 09:11 Dose: Infused Documented By: Admin: 11/14/23 08:32 Dose: 15 mls/hr Documented By: OCHOA Miscellaneous ( Floseal Hemostatic Matrix 10ml) 20 ml TOP ONCE ONE Stop: 11/14/23 10:18 Last Admin: 11/14/23 10:05 Dose: 20 ml Documented By: ALAINA Scopolamine (Scopolamine 1 Mg/72 Hr Tdsy Patch) Confirm Administered Dose 1 patch TD .STK-MED ONE Stop: 11/14/23 08:49 Last Admin: 11/14/23 08:50 Dose: 1 patch Documented By: ROMELIA Scopolamine (Scopolamine 1 Mg/72 Hr Tdsy Patch) 1 patch TD ONE ONE Stop: 11/14/23 08:48 Last Admin: 11/14/23 12:07 Dose: Not Given Documented By: BORA (3) HTN (hypertension) Hypertension type: unspecified Qualified Code(s): I10 - Essential (primary) hypertension (5) MDD (major depressive disorder) Active/Remission status: remission status unspecified Major depression re currence: unspecified whether recurrent Qualified Code(s): F32.9 - Major depressive disorder, single episode, unspecified
[2023-11-15 10:32] LABS: BUN Creatinine Ratio 17.5 (10-20); Calcium 9.2 mg/dl (8.6-10.3); Creatinine Clr Calc Pharmacy 57.5 ml/min; Est GFR (African American) 98.2 ml/min; Est GFR (Non-African American) 84.7 ml/min; Potassium 4.1 mmol/L (3.5-5.1)
[2023-11-15] MEDS: ACETAMINOPHEN 500 MG TAB PO PRN (20:41)
[2023-11-15] MEDS: LORazepam 0.5 MG TAB PO PRN (20:42)
[2023-11-16 07:39] LABS: Hematocrit (blood only) 34.2 % (37.0-47.0); Hemoglobin 11.2 g/dl (12.0-16.0); Mean Corpuscular Hemoglobin 32.3 pg (25.0-34.0); Mean Corpuscular Hgb Conc 32.7 g/dL (32.0-36.0); Mean Corpuscular Volume 98.6 fL (80.0-100.0); Mean Platelet Volume 10.1 fL (9.4-12.4); Platelet Count 187 K/uL (130-400); RDW Coefficient of Variation 13.7 % (11.5-14.5); RDW Standard Deviation 49.1 fL (36.4-46.3); Red Blood Count 3.47 M/uL (4.20-5.40); White Blood Count 6.22 K/ul (4.8-10.8)
[2023-11-16 07:42] LABS: Albumin Globulin Ratio 1.5 (0.9-2); Albumin Level 3.8 gm/dl (3.4-5.0); BUN Creatinine Ratio 15.7 (10-20); Bilirubin,Total 0.4 mg/dl (0.2-1.0); Calcium 9.3 mg/dl (8.6-10.3); Creatinine Clr Calc Pharmacy 51.7 ml/min; Est GFR (African American) 94.8 ml/min; Est GFR (Non-African American) 81.8 ml/min; Globulin 2.6 gm/dl (2.5-4.0); Potassium 4.2 mmol/L (3.5-5.1); Total Protein 6.4 gm/dl (6.0-8.3)
--- NOTE | 2023-11-16 09:34 | Orthopedic Progress Note ---
Date of Service November 16, 2023 Assessment & Plan (1) S/P fusion of sacroiliac joint: Plan: At this time we will continue physical therapy manage for pain control hopefully discharge home tomorrow. Admission and Anticipated Discharge Date Admission Date: November 14, 2023 Subjective Patient still struggling with some postoperative hip pain in the perioperative region. She is tolerating physical therapy. Physical Exam Physical Exam: On exam she is standing and ambulating. She is neurologically intact. Results & Data Vital Signs (Past 12 Hours) Vital Signs Temp Pulse Resp BP Pulse Ox O2 Del Method 11/16/23 08:02 36.6 C 67 16 116/61 95 Room Air 11/16/23 06:21 36.4 C L 66 16 131/72 95 Room Air 11/15/23 22:37 36.8 C 66 15 125/69 96 Room Air
--- NOTE | 2023-11-16 15:48 | Hospitalist Progress Note ---
Date of Service November 16, 2023 Assessment & Plan (1) Sacroiliac joint dysfunction: (2) S/P fusion of sacroiliac joint: Plan: Nini Talbot is an 78y/o F with PMHx of osteoarthritis, lumbar scoliosis, chronic back pain, history of anemia, major depressive disorder, cardiomyopathy s/p ICD placement, pulmonary hypertension, history of sacroiliac joint dysfunction s/p right SI joint fusion, history of basal cell carcinoma, CAD, HTN, hyperlipidemia and other problems listed below [facility] after undergoing revision of her right sacroiliac joint fusion with Dr. Nathan. Patient's implant migrated from the right SI joint causing significant pain and subsequently she required a revision procedure. POD#2 s/p revision of R sacroiliac joint fusion with Dr. Nathan; EBL: 10mL -Per ortho for pain control, wound care, anticoagulation and activities. -Monitor H&H for acute blood loss anemia and transfuse blood products PRN. -Continue incentive spirometry, PT when appropriate as per ortho's recommendation. (3) HTN (hypertension): Plan: Can continue [employer] carvedilol regimen. Routine BP checks, monitor. (4) Seasonal allergies: Plan: Can continue [employer] cetirizine. (5) MDD (major depressive disorder): Plan: Can continue [employer] citalopram. DVT Prophylaxis: SCDs/TEDs - As per ortho team Code Status: FULL CODE PCP: Moraima Maharaj DO Disposition: per primary team. Admission and Anticipated Discharge Date Admission Date: November 14, 2023 Subjective patient was seen and examined at bedside. Patient was lying in bed, on room air, NAD, reports good amount of pain with movement in perioperative region, denies other review of symptoms. Reports eating okay, moving gas, no belly pain, has not moved bowels. Physical Exam Physical Exam: General: Laying down in bed, conversing appropriately, very pleasant, NAD, A+Ox3. HEENT: Normocephalic, atraumatic. Conjunctivae normal, anicteric sclerae. External ear and nose normal, oropharynx normal. Respiratory: Normal respiratory effort, lungs clear to auscultation, no wheeze, rales, rhonchi. No accessory muscle use. Cardiovascular: Regular rate, rhythm, no murmur, normal peripheral pulses, no BLE edema. Vessels: No JVD. Abdomen/GI: Normal bowel sounds, soft, nontender, no hepatosplenomegaly. Extremities/Musculoskeletal: No cyanosis or clubbing, significant pain in R hip with rom. low back dressing c/d/i Neurologic: PERRL, EOMI, accommodation nl, no face palsy, no dysarthria. Skin: Normal color, warm/dry. Did not directly visualize the bandaging covering her surgical site 2/2 pain with movement. Results & Data Results & Data Vital Signs (Past 12 Hours) Vital Signs Temp Pulse Pulse Resp BP Pulse Ox O2 Del Method 11/16/23 15:33 36.5 C 69 18 114/75 92 Room Air 11/16/23 12:58 36.6 C 64 16 126/75 93 Room Air 11/16/23 08:02 36.6 C 67 16 116/61 95 Room Air 11/16/23 06:21 36.4 C L 66 16 131/72 95 Room Air (3) HTN (hypertension) Hypertension type: unspecified Qualified Code(s): I10 - Essential (primary) hypertension (5) MDD (major depressive disorder) Major depression recurrence: unspecified whether recurrent Active/Remission status: remission status unspecified Qualified Code(s): F32.9 - Major depressive disorder, single episode, unspecified
[2023-11-17 06:50] LABS: Hematocrit (blood only) 31.5 % (37.0-47.0); Hemoglobin 10.7 g/dl (12.0-16.0); Mean Corpuscular Hemoglobin 32.8 pg (25.0-34.0); Mean Corpuscular Volume 96.6 fL (80.0-100.0); Mean Platelet Volume 10.1 fL (9.4-12.4); Platelet Count 151 K/uL (130-400); RDW Coefficient of Variation 13.2 % (11.5-14.5); RDW Standard Deviation 46.8 fL (36.4-46.3); Red Blood Count 3.26 M/uL (4.20-5.40); White Blood Count 4.03 K/ul (4.8-10.8)
[2023-11-17] MEDS: MAGNESIUM OXIDE 400 MG TAB PO SCH (08:55)
--- NOTE | 2023-11-17 14:05 | Discharge Summary ---
Date of Service November 17, 2023 Admission HPI Per Admitting Provider This is an 78-year-old female that presents with failure of her right SI joint fusion is here for revision. Principal Diagnosis Sacroiliitis the right joint. Discharge Data Allergies Allergy/AdvReac Type Severity Reaction Status Date / Time Sulfa (Sulfonamide Allergy Intermediate rash/itchy Verified 11/14/23 07:59 Antibiotics) meperidine [From Demerol] AdvReac Severe "I become Verified 11/14/23 07:59 a hostile, paranoid, vulgar talking women" Consultations 11/14/23 12:04 Consult Internal Medicine Routine Procedures Performed Operation Date: 11/14/23 09:05 Actual Procedures p Right Sacroiliac Joint Fusion Revision(Right) - Audie Nathan DO Ordered Studies 11/14/23 09:05 FL sacrum Routine Hospital Course (1) S/P fusion of sacroiliac joint: Patient underwent revision fusion right SI joint. Patient tolerates well was taken to orthopedic floor postoperative. Postop patient progressed with physical therapy. Pain controlled. Excellent strength testing. Subsidy discharged home. Discharge orders instructions from the chart for further review. Total Time Total Time Spent Total Time Spent (In Minutes): 20 minutes Discharge Plan Discharge Items Patient Disposition: Home - Self-Care Reason For Visit: Pain from Implanted Hardware, Status Post Sacroili Discharge Diagnosis: Sacroiliitis Activity: As commented below Non-emergency contact: Primary Care Provider Call non-emergency contact if: you have any medication questions Follow-up/Referrals: Moraima Maharaj DO [Primary Care Provider] - Diet: Regular Addtl Attending Provider Instructions: Patient is to use a walker at all times. Toe-touch weightbearing to the right lower extremity as tolerated. May shower when she gets home. Pending Studies at Discharge: No Stand-Alone Forms: [employer], Smoking Cessation Medications and DC Order Prescriptions: New tramadol 50 mg tablet 50 mg PO Q6H PRN (Reason: pain, moderate) Qty: 30 0RF oxycodone 5 mg tablet 5 mg PO Q6H PRN (Reason: pain) Qty: 30 0RF Continued carvedilol 6.25 mg Tablet 6.25 mg PO QPM Rx Instructions: must administer with a meal/food carvedilol 6.25 mg Tablet 12.5 mg PO QAM Rx Instructions: must administer with a meal/food baclofen 10 mg Tablet 10 mg PO BID Premarin 0.625 mg Tablet 0.625 mg PO Q OTHER DAY Patient Comments: takes every other day in am multivitamin Tablet 1 tab PO QAM citalopram [Celexa] 40 mg Tablet 40 mg PO QPM hydrocodone-acetaminophen 10-325 mg Tablet 1 tab PO Q8 calcium carbonate 500 mg calcium (1,250 mg) Tablet 500 mg PO QAM vitamin E 400 unit Tablet 400 unit PO QAM Magnesium (oxide/AA chelate) 300 mg Capsule 1 cap PO QAM cholecalciferol (vitamin D3) [Vitamin D3] 125 mcg (5,000 unit) Tablet 125 mcg PO QAM potassium gluconate 550 mg (90 mg) Tablet 90 mg PO QAM cetirizine [Zyrtec] 10 mg Tablet 10 mg PO QAM PRN (Reason: Allergy Symptoms) Discharge Orders: Discharge Order (Routine); Ordered 11/17/23 Ordered By: Audie Saenz/Other Patient Handouts: Incision Care Admission Data Admit Date/Time: 11/14/23 10:33 Attending Provider: Audie Nathan Admit Provider: Audie Nathan Primary Care Provider: Moraima Maharaj Other Providers: Shabnam Aaron; Priya Bell Other Interventions: Discharge Summary Assessment (RN) Last Done: 11/17/23 11:28
--- NOTE | 2023-11-17 14:17 | Hospitalist Progress Note ---
Date of Service November 17, 2023 Assessment & Plan (1) Sacroiliac joint dysfunction: (2) S/P fusion of sacroiliac joint: Plan: Nini Talbot is an 78y/o F with PMHx of osteoarthritis, lumbar scoliosis, chronic back pain, history of anemia, major depressive disorder, cardiomyopathy s/p ICD placement, pulmonary hypertension, history of sacroiliac joint dysfunction s/p right SI joint fusion, history of basal cell carcinoma, CAD, HTN, hyperlipidemia and other problems listed below [facility] after undergoing revision of her right sacroiliac joint fusion with Dr. Nathan. Patient's implant migrated from the right SI joint causing significant pain and subsequently she required a revision procedure. POD#3 s/p revision of R sacroiliac joint fusion with Dr. Nathan; EBL: 10mL -Per ortho for pain control, wound care, anticoagulation and activities. -Monitor H&H for acute blood loss anemia and transfuse blood products PRN. -Continue incentive spirometry, PT when appropriate as per ortho's recommendation. (3) HTN (hypertension): Plan: Can continue [employer] carvedilol regimen. Routine BP checks, monitor. (4) Seasonal allergies: Plan: Can continue [employer] cetirizine. (5) MDD (major depressive disorder): Plan: Can continue [employer] citalopram. DVT Prophylaxis: SCDs/TEDs - As per ortho team Code Status: FULL CODE PCP: Moraima Maharaj DO Disposition: per primary team. Admission and Anticipated Discharge Date Admission Date: November 14, 2023 Subjective patient was seen and examined at bedside. Patient was lying in bed, on room air, NAD, reports improving pain in perioperative region, denies other review of symptoms. Reports eating okay, moving gas, no belly pain. Physical Exam Physical Exam: General: Laying down in bed, conversing appropriately, very pleasant, NAD, A+Ox3. HEENT: Normocephalic, atraumatic. Conjunctivae normal, anicteric sclerae. External ear and nose normal, oropharynx normal. Respiratory: Normal respiratory effort, lungs clear to auscultation, no wheeze, rales, rhonchi. No accessory muscle use. Cardiovascular: Regular rate, rhythm, no murmur, normal peripheral pulses, no BLE edema. Vessels: No JVD. Abdomen/GI: Normal bowel sounds, soft, nontender, no hepatosplenomegaly. Extremities/Musculoskeletal: No cyanosis or clubbing, significant pain in R hip with rom. low back dressing c/d/i Neurologic: PERRL, EOMI, accommodation nl, no face palsy, no dysarthria. Skin: Normal color, warm/dry. Results & Data Results & Data Vital Signs (Past 12 Hours) Vital Signs Temp Pulse Pulse Resp BP Pulse Ox O2 Del Method 11/17/23 11:28 36.7 C 64 71 15 139/69 93 11/17/23 07:26 36.7 C 71 15 139/69 93 Room Air (3) HTN (hypertension) Hypertension type: unspecified Qualified Code(s): I10 - Essential (primary) hypertension (5) MDD (major depressive disorder) Major depression recurrence: unspecified whether recurrent Active/Remission status: remission status unspecified Qualified Code(s): F32.9 - Major depressive disorder, single episode, unspecified
== END 2023-11-17 12:54 | disposition home or self-care (01) | DRG 460 ==
LOC: ASU 07:28 → 3E 10:33